=== PATIENT | male | born 1970 | race African-American/Black ===

== ENCOUNTER 2017-10-08 08:59 | Emergency (ER) | payer BC, OTHER ==
[~2017-10-08] VITALS: Ht 182.9 cm; Wt 113.9 kg
[2017-10-08 09:09] VITALS: BP 137/89
== END 2017-10-08 10:38 | disposition home or self-care (01) ==
LOC: ER 09:02
DX: R07.89 Other chest pain (principal); M19.90 Unspecified osteoarthritis, unspecified site; Z88.1 Allergy status to other antibiotic agents
CPT/HCPCS: 71101

== ENCOUNTER 2022-08-25 11:35 | Emergency (ER) | payer MEDICAID, OTHER ==
[~2022-08-25] VITALS: Ht 182.9 cm; Wt 113.6 kg
[2022-08-25] MEDS ORDERED: KETOROLAC TROMETH 60MG/2ML VIAL IM ONE (16:30)
[2022-08-25] MEDS ORDERED: INDO50CA82 PO (16:43)
[2022-08-25 17:02] VITALS: BP 130/82
== END 2022-08-25 17:02 | disposition home or self-care (01) ==
LOC: ER 11:35
DX: M24.171 Other articular cartilage disorders, right ankle (principal); Z79.899 Other long term (current) drug therapy; Z88.1 Allergy status to other antibiotic agents
CPT/HCPCS: 73562; 96372; 99283; J1885